=== PATIENT | female | born 1965 | race Caucasian/White ===

== ENCOUNTER 2016-10-22 13:57 | Emergency (ER) | payer SELFPAY ==
[2016-10-22 14:23] VITALS: BP 159/89
--- NOTE | 2016-10-22 14:38 | EDM.PDOC ---
ED HPI GENERAL MEDICAL PROBLEM - General Chief Complaint: Chest Pain Stated Complaint: CHEST PAIN Time Seen by Provider: 10/22/16 14:28 Source of Information: Reports: Patient, Family (spouse) History Limitations: Reports: No Limitations, Other (Very difficult historian. She keeps interrupting .she does not answer questions appropriately.) - History of Present Illness INITIAL COMMENTS - FREE TEXT/NARRATIVE: 51-year-old female presents to the ED out of concerns for her heart. She had sent central and right-sided chest pain during the night about 3:30 and very difficult time getting her breath. History she smokes a pack of cigarettes a day. She was having a very productive cough about 10 days ago but was took only 2 tablets of a Z-Brady. She woke up in the night coughing paroxysmal. She has pain along the costal margin bilaterally and into her back. No nausea or vomiting. Appetite remains fair but not as good as normal. She was very chilled last night and had to turn up the heater in the hotel room to 90. He states the sputum that she does bring out once in a while his salty and taste suggesting a sinus source. ECG done by triage nurse shows sinus rhythm at 90/m there is an early R-wave transition with decreased voltage in the limb leads. QT interval is normal no signs of ischemia. Onset: Sudden (FROM sleep with this dyspnea and feeling like she could not get her air with paroxysmal cough and central chest pain rating 1 costal margins and into her back. Not bringing up any sputum at present. Concerned that she is having problems with her heart.) Onset Date: 10/22/16 (Has been having a paroxysmal cough up her spider tract symptoms for the better part of 3 weeks.) Duration: Day(s):, Resolved Prior to Arrival (At the time of assessment in the ED she has no chest pain.) Location: Reports: Chest, Back Quality: Reports: Burning (Mid and lower back) Severity: Moderate Improves with: Reports: Rest Worsens with: Reports: Other (Lying down), Movement Context: Denies: Activity, Exercise, Lifting, Sick Contact, Trauma Associated Symptoms: Reports: Cough, cough w sputum (Occasional sputum production), Diaphoresis, Fever/Chills, Loss of Appetite (Decrease in appetite but not complete loss), Shortness of Breath. Denies: Headaches (Last night), Malaise, Nausea/Vomiting, Rash, Seizure (At times) Treatments PLANT ECOLOGIST: Reports: Other (see below) (None.) Chest Pain Score (Numeric/FACES): 3 - Related Data Home Meds: Home Meds Benzonatate [Tessalon Perles] 200 mg PO TID #15 cap 10/22/16 [Rx] Levofloxacin [Levaquin] 500 mg PO Q24H #10 tablet 10/22/16 [Rx] Past Medical History Respiratory History: Reports: Bronchitis, Recurrent ED ROS GENERAL - Review of Systems Review Of Systems: See Below Constitutional: Reports: Chills, Malaise, Fatigue, Diaphoresis (Last night), Decreased Appetite. Denies: Weight Loss HEENT: Reports: Ear Pain, Sinus Problem. Denies: Eye Discharge (Ear pain last night), Eye Pain, Glasses, Hearing Loss, Nosebleed, Throat Pain, Throat Swelling , Vertigo Respiratory: Reports: Shortness of Breath, Wheezing, Cough, Sputum. Denies: Pleuritic Chest Pain (A joint), Hemoptysis (Occasionally) Cardiovascular: Reports: Chest Pain (From coughing. Also central and right lateral chest pain last night at 3:00.). Denies: Blood Pressure Problem (She is hypertensive at present.), Claudication (Not usually.), Dyspnea on Exertion, Edema, Lightheadedness Endocrine: Reports: No Symptoms GI/Abdominal: Reports: No Symptoms : Reports: No Symptoms Musculoskeletal: Reports: Back Pain (Developed quite severe back pain burning in nature when she was coughing so hard last night.) Skin: Reports: No Symptoms Neurological: Reports: No Symptoms Psychiatric: Reports: No Symptoms Hematologic/Lymphatic: Reports: No Symptoms Immunologic: Reports: No Symptoms ED EXAM, GENERAL - Physical Exam Exam: See Below Exam Limited By: No Limitations General Appearance: Alert, WD/WN, No Apparent Distress, Anxious Eye Exam: Bilateral Eye: Normal Inspection Ears: Normal External Exam, Other (Has a little bit of increased wax in the left ear canal but the drum is normal.) Nose: Other (Marked swelling of the nasal turbinates bilaterally but with chronic allergic rhinitis.) Throat/Mouth: Normal Inspection, Normal Lips, Normal Oropharynx ( I believe she is experiencing intermittent eustachian tube dysfunction by her history.), Other (Uvula is a little erythematous I believe from coughing so hard.) Head: Atraumatic, Other Neck: Normal Inspection, Supple, Non-Tender, Full Range of Motion. No: Lymphadenopathy (L), Lymphadenopathy (R) Respiratory/Chest: No Respiratory Distress, Lungs Clear, Normal Breath Sounds, No Accessory Muscle Use, Chest Non-Tender. No: Respiratory Distress, Decreased Breath Sounds, Crackles, Rhonchi, Wheezing, Stridor, Pleural Rub, Accessory Muscle Use Cardiovascular: Normal Peripheral Pulses, Regular Rate, Rhythm, No Edema, No Gallop, No Murmur Peripheral Pulses: 2+: Posterior Tibial (L), Posterior Tibial (R), Dorsalis Pedis (L), Dorsalis Pedis (R) GI/Abdominal: Normal Bowel Sounds, Soft, Non-Tender, No Organomegaly, No Distention Back Exam: Normal Inspection, Full Range of Motion, Paraspinal Tenderness (Has pain well localized to the right seventh eighth rib heads on the right side. Suspect rib head subluxation). No: CVA Tenderness (L), CVA Tenderness (R) Extremities: Normal Inspection (On the right side.), Normal Range of Motion, Non -Tender, Normal Capillary Refill Neurological: Alert, Oriented, CN II-XII Intact, Normal Cognition, Normal Gait Psychiatric: Normal Affect, Normal Mood Skin Exam: Warm, Dry, Intact, Normal Color, No Rash EKG INTERPRETATION EKG Date: 10/22/16 Time: 14:00 Rhythm: NSR Rate (Beats/Min): 90 [place]: Normal P-Wave: Present QRS: Other (Early R-wave transition) ST-T: Normal (decreased voltage in the limb leads.) QT: Normal Course - Vital Signs Last Recorded V/S: Last Vital Signs Temp 36.2 C 10/22/16 14:22 Pulse 93 10/22/16 14:22 Resp 17 10/22/16 14:22 BP 159/89 H 10/22/16 14:22 Pulse Ox 98 10/22/16 14:22 - Orders/Labs/Meds Orders: Active Orders 24 hr Category Date Time Status EKG 12 Lead [EKG Documentation Completion] [RC] STAT Care 10/22/16 14:33 Active Chest 2V [CR] Stat Exams 10/22/16 14:38 Taken Labs: Laboratory Tests 10/22/16 10/22/16 Range/Units 15:11 15:11 WBC 11.49 H (3.98-10.04) K/mm3 RBC 4.36 (3.98-5.22) M/mm3 Hgb 11.4 (11.2-15.7) gm/L Hct 35.8 (34.1-44.9) % MCV 82.1 (79.4-94.8) fl MCH 26.1 (25.6-32.2) pg MCHC 31.8 L (32.2-35.5) g/dl RDW Std Deviation 42.3 (36.4-46.3) fL Plt Count 356 (182-369) K/mm3 MPV 9.3 L (9.4-12.3) fl Neutrophils % (Manual) 68 H (40-60) % Band Neutrophils % 0 (0-10) % Lymphocytes % (Manual) 30 (20-40) % Atypical Lymphs % 0 % Monocytes % (Manual) 2 (2-10) % Eosinophils % (Manual) 0 L (0.7-5.8) % Basophils % (Manual) 0 L (0.1-1.2) Platelet Estimate Adequate Plt Morphology Comment Normal RBC Morph Comment Normal Sodium 140 (136-145) mEq/L Potassium 3.7 (3.5-5.1) mEq/L Chloride 105 (98-107) mEq/L Carbon Dioxide 25 (21-32) mEq/L Anion Gap 13.7 (5-15) BUN 9 (7-18) mg/dL Creatinine 0.7 (0.55-1.02) mg/dL Est Cr Clr Drug Dosing 75.20 mL/min Estimated GFR (MDRD) > 60 (>60) mL/min BUN/Creatinine Ratio 12.9 L (14-18) Glucose 85 (74-106) mg/dL Calcium 8.5 (8.5-10.1) mg/dL Total Bilirubin 0.2 (0.2-1.0) mg/dL AST 13 L (15-37) U/L ALT 17 (14-59) U/L Alkaline Phosphatase 80 (46-116) U/L CK-MB (CK-2) < 0.5 (0-3.6) ng/ml Troponin I < 0.017 (0.00-0.056) ng/mL C-Reactive Protein 2.7 H* (<1.0) mg/dL Total Protein 7.2 (6.4-8.2) g/dl Albumin 3.4 (3.4-5.0) g/dl Globulin 3.8 gm/dL Albumin/Globulin Ratio 0.9 L (1-2) Meds: Medications Discontinued Medications Generic Name Dose Route Start Last Admin Trade Name Cristin PRN Reason Stop Dose Admin Levofloxacin 500 mg 10/22/16 16:11 10/22/16 16:24 Levaquin PO 10/22/16 16:12 500 mg ONETIME ONE Administration - Radiology Interpretation Free Text/Narrative:: Difficult lady to assess. Poor historian by history she's had paroxysmal intermittent cough for the last part of 3 weeks. She was prescribed a Z-Brady but took only the first 2 tablets for bronchitis. States her sputum production is decreased. She woke during the night with severe paroxysmal cough central chest pain right-sided chest pain rating along the costal margins and to her back. She presents to the ER today out of concerns for her heart. She has no chest pain now. Lungs are clear. ECG is normal. She clinically has evidence of marked allergic rhinitis and likely postnasal drip contributing to her cough. The turbinates are markedly swollen bilaterally. She had severe left ear pain last night and I suspect had eustachian tube dysfunction from coughing bulging eardrum. Plan 2 view chest x-ray will be done routine labs to be done. This will include cardiac markers. - Re-Assessments/Exams Free Text/Narrative Re-Assessment/Exam: 10/22/16 14:59 2 view of the chest is within normal limits. No infiltrates to suggest pneumonia. No pneumothorax. 10/22/16 15:56 labs are back. White count is mildly elevated at 11.49. Differential shows 68% neutrophils and no bands. Hemoglobin is a little 11.4 hematocrit is 35.8. Platelets 356,000. Chemistry is completely normal CRP is elevated at 2.7. Cardiac markers are normal. Therefore she continues to have a combination of sinusitis with postnasal drip aggravating her cough as well as bronchitis. Plan I'm going to place her on Levaquin 500 mg once daily for the next 10 days to clear up any infection. Tessalon Perles 200 mg every 8 hours when necessary for cough relief. She reports that she is allergic to hydrocodone makes her nausea and vomiting. Will have to follow-up with chiropractor to have her Departure - Departure Time of Disposition: 15:58 Disposition: Home, Self-Care 01 Condition: Fair Clinical Impression: Bronchitis Sinusitis Qualifiers: Sinusitis location: unspecified location Chronicity: subacute Qualified Code(s) : J01.90 - Acute sinusitis, unspecified - Discharge Information Prescriptions: Benzonatate [Tessalon Perles] 200 mg PO TID #15 cap Levofloxacin [Levaquin] 500 mg PO Q24H #10 tablet Instructions: Sinusitis, Adult, [id number], Acute Bronchitis, [id number] Referrals: PCP,None [Primary Care Provider] - Forms: ED Department Discharge Additional Instructions: Evaluation in the emergency department today in regards to persistent paroxysmal cough for the last several weeks. Examination reveals evidence of allergic rhinitis with very narrow passages in your nose. These swellings are secondary to allergies in the air. They have been present for many years. They unfortunately clotted off the drainage tubes from your ears and your sinuses. That acute left ear pain expressed last night was due to air being trapped within the middle ear portion of the eardrum causing severe pain. Part of her continued cough is postnasal drip from the sinuses draining down the back of her throat. Some of the secretions will taste salty at times. They cause a chronic irritated throat and cough. Chest x-ray done today is within normal limits showing no signs of pneumonia. Lab work over does show an elevated white count at 11.49 with normal being less than 9 suggestive of a low-grade infection. Also markers for infection were elevated CRP at 2.7 with normal is less than 0. Remainder of your blood tests in particular cardiac markers for any heart attack were normal. There was no evidence of heart related illness. Paroxysmal cough I believe is contributing to intermittent pains in your back and her ribs. Suggest treatment with antibiotic Levaquin 500 mg once daily for the next 10 days to clear up infection in both sinuses and the chest. Cough tablets Tussionex Perles 200 mg every 8 hours as needed to suppress cough . Follow-up with her personal physician of any further problems occur - My Orders Last 24 Hours: My Active Orders 10/22/16 14:33 EKG 12 Lead [EKG Documentation Completion] [RC] STAT 10/22/16 14:38 Chest 2V [CR] Stat - Assessment/Plan Last 24 Hours: My Active Orders 10/22/16 14:33 EKG 12 Lead [EKG Documentation Completion] [RC] STAT 10/22/16 14:38 Chest 2V [CR] Stat
[2016-10-22] MEDS ORDERED: Levofloxacin 250 MG Tab PO ONE (16:11)
--- NOTE | 2016-10-24 09:11 | CR ---
Chest: Two views of the chest were obtained. Comparison: No previous chest x-ray. Heart size and mediastinum are normal. Lungs are clear. Bony structures show minimal scoliosis within the spine. Impression: 1. Minimal scoliosis. Nothing acute is identified. Diagnostic code #2
== END 2016-10-22 16:30 | disposition home or self-care (01) ==
LOC: JD.ED 13:57
DX: J40 Bronchitis, not specified as acute or chronic (principal); J01.90 Acute sinusitis, unspecified; F17.210 Nicotine dependence, cigarettes, uncomplicated
CPT/HCPCS: 36415; 71020; 80053; 82553; 84484; 85025; 86140; 93005; 99285; A9270; 99283